=== PATIENT | male | born 1970 | race Caucasian/White ===

== ENCOUNTER 2018-01-26 08:19 | Inpatient (IN) | payer OTHER ==
[~2018-01-26] VITALS: Ht 180.3 cm; Wt 120.2 kg
[~2018-01-26 08:19] MED LIST: ALVIMOPAN 12 MG CAPSULE PO ONE; CEFOXITIN 2 GM/DEXTROSE,ISO 50 ML (PREMIX) IV ONE; LIP20 PO; LISI-209 PO; LOP600 PO
[2018-01-26] MEDS ORDERED: ALVIMOPAN 12 MG CAPSULE PO ONE (08:46)
[2018-01-26] MEDS ORDERED: cefOXitin 1 GM IVPB PREMIX 100 ML IV ONE (08:48)
[2018-01-26] MEDS ORDERED: GABA-531 PO (09:00)
[2018-01-26] MEDS ORDERED: EMPA1TAB7 PO (09:00)
[2018-01-26] MEDS ORDERED: ASPI81TA2 PO (09:00)
[2018-01-26] MEDS ORDERED: NS IRRIG SOLN 1000 ML IR ONE (10:35)
[2018-01-26] MEDS ORDERED: SUCCINYLCHOLINE CHLORIDE 20 MG/ML(QUELICIN) IVP ONE (10:35)
[2018-01-26] MEDS ORDERED: fentaNYL CITRATE 250 MCG/5 ML AMP IV ONE (10:35)
[2018-01-26] MEDS ORDERED: ONDANSETRON HCL 4 MG/2 ML VIAL IVP ONE (10:35)
[2018-01-26] MEDS ORDERED: GLYCOPYRROLATE 0.2 MG/ML VIAL IJ ONE (10:35)
[2018-01-26] MEDS ORDERED: PROPOFOL 200MG/ 20ML VIAL (DIPRIVAN) IV ONE (10:35)
[2018-01-26] MEDS ORDERED: LR 1,000 ML IV.SOLN IV ONE (10:35)
[2018-01-26] MEDS ORDERED: MIDAZOLAM HCL 5 MG/5 ML VIAL IVP ONE (10:35)
[2018-01-26] MEDS ORDERED: BUPIVACAINE LIPOSOME/PF 266 MG/20 ML VIAL INFIL ONE ×2 (10:35→12:57)
[2018-01-26] MEDS ORDERED: ROCURONIUM BROMIDE 10 MG/ML (ZEMURON) IV ONE (10:35)
[2018-01-26] MEDS ORDERED: SEVOFLURANE 15 MIN GAS INH ONE (10:35)
[2018-01-26] MEDS ORDERED: LR 1,000 ML IV SCH (12:38)
[2018-01-26] MEDS ORDERED: MORPHINE 4 MG/ML INJ. SYRINGE IVP PRN ×3 (12:45)
[2018-01-26] MEDS ORDERED: METOCLOPRAMIDE HCL 10 MG/2 ML VIAL IVP PRN (12:45)
[2018-01-26] MEDS ORDERED: HYDROcodone/ACETAMIN 5-325 MG TAB (NORCO/ VICODIN) PO PRN (13:30)
[2018-01-26] MEDS ORDERED: HYDROmorphone 1 MG INJ. 1 MG/ML AMPUL IVP PRN (13:30)
[2018-01-26] MEDS ORDERED: ACETAMINOPHEN 325 MG TABLET PO PRN (13:30)
[2018-01-26] MEDS ORDERED: ONDANSETRON HCL 4 MG/2 ML VIAL IVP PRN (13:30)
[2018-01-26] MEDS ORDERED: METOCLOPRAMIDE HCL 10 MG/2 ML VIAL ONE (14:07)
[2018-01-26] MEDS ORDERED: MORPHINE 4 MG/ML INJ. SYRINGE ONE (14:15)
[2018-01-26] MEDS: D5/0.45 NS 1,000 ML IV SCH (14:50)
[2018-01-26] MEDS: HYDROcodone/ACETAMIN 5-325 MG TAB (NORCO/ VICODIN) PO PRN ×3 (14:50→23:18)
[2018-01-26 15:00] VITALS: BP_SYST 148
[2018-01-26 16:00] VITALS: BP_SYST 155
[2018-01-26 16:40] LABS: HEMATOCRIT 46.5 % (36-54); HEMOGLOBIN 15.7 g/dL (14.0-18.0)
[2018-01-26 17:06] LABS: CALCIUM 8.8 mg/dL (8.4-11.0); CREATININE 1.16 mg/dL (0.55-1.30); POTASSIUM 4.7 mmol/L (3.5-5.1)
[2018-01-26 18:04] VITALS: BP_SYST 148
[2018-01-26] MEDS: cefOXitin SODIUM 2 GM in D5W 100 ML IV SCH (20:48)
[2018-01-26] MEDS: FAMOTIDINE PF 20 MG/2 ML VIAL IVP SCH (20:49)
[2018-01-26] MEDS: ALVIMOPAN 12 MG CAPSULE PO SCH (20:49)
[2018-01-27] VITALS: BP_SYST 139
[2018-01-27] MEDS: D5/0.45 NS 1,000 ML IV SCH ×3 (03:30→12:15)
[2018-01-27] MEDS: HYDROcodone/ACETAMIN 5-325 MG TAB (NORCO/ VICODIN) PO PRN ×5 (03:43→20:37)
[2018-01-27 06:33] LABS: BASOPHILS % (AUTO) 0.4 % (0.0-2.0); EOSINOPHILS # (AUTO) 0.1 K/uL (0.0-0.4); EOSINOPHILS % (AUTO) 0.9 % (0.0-4.0); HEMATOCRIT 43.2 % (36-54); HEMOGLOBIN 14.9 g/dL (14.0-18.0); LYMPHOCYTES # (AUTO) 1.8 K/uL (1.0-5.5); LYMPHOCYTES % (AUTO) 22.1 % (20.5-51.5); MEAN CORPUSCULAR HEMOGLOBIN 30 pg (27-31); MEAN CORPUSCULAR HGB CONC 35 % (32-36); MEAN CORPUSCULAR VOLUME 87 fL (79.0-98.0); MONOCYTES # (AUTO) 0.7 K/uL (0.0-1.0); MONOCYTES % (AUTO) 8.4 % (1.7-9.3); NEUTROPHILS # (AUTO) 5.7 K/uL (1.8-7.7); NEUTROPHILS % (AUTO) 68.2 % (40.0-70.0); PLATELET COUNT (AUTO) 227 K/uL (130-430); RED BLOOD CELL COUNT(AUTO) 4.97 MIL/uL (4.2-6.2); RED CELL DISTRIBUTION WIDTH 12.2 % (9.0-15.0); WHITE BLOOD COUNT (AUTO) 8.3 K/uL (4.8-10.8)
[2018-01-27 07:04] LABS: ALBUMIN 3.5 g/dL (3.4-4.8); CALCIUM 8.1 mg/dL (8.4-11.0); CREATININE 0.98 mg/dL (0.55-1.30); POTASSIUM 3.6 mmol/L (3.5-5.1)
[2018-01-27 08:00] VITALS: BP_SYST 145
[2018-01-27] MEDS: ALVIMOPAN 12 MG CAPSULE PO SCH ×2 (08:20→20:36)
[2018-01-27] MEDS: ENOXAPARIN SODIUM 30 MG/0.3 ML SYRINGE SUBCUT SCH (08:21)
[2018-01-27] MEDS: cefOXitin SODIUM 2 GM in D5W 100 ML IV SCH (08:21)
[2018-01-27] MEDS: FAMOTIDINE PF 20 MG/2 ML VIAL IVP SCH ×2 (08:22→20:36)
[2018-01-27] MEDS ORDERED: DEXTROSE 50% JECT 50 ML DISP.SYRIN IVP PRN (10:45)
[2018-01-27 12:00] VITALS: BP_SYST 137
[2018-01-27] MEDS: GABAPENTIN 300 MG CAPSULE PO SCH ×2 (16:00→20:36)
[2018-01-27 16:53] VITALS: BP_SYST 132
[2018-01-27] MEDS: METOCLOPRAMIDE HCL 10 MG/2 ML VIAL IVP SCH (17:41)
[2018-01-28] MEDS: HYDROcodone/ACETAMIN 5-325 MG TAB (NORCO/ VICODIN) PO PRN ×3 (00:22→13:59)
[2018-01-28] MEDS: INSULIN REGULAR, HUMAN 100 UNITS/ML, 10 ML VIAL (novoLIN R) SUBCUT PRN ×2 (00:25→05:39)
[2018-01-28 00:56] VITALS: BP_SYST 140
[2018-01-28] MEDS: METOCLOPRAMIDE HCL 10 MG/2 ML VIAL IVP SCH ×3 (05:44→11:56)
[2018-01-28 08:00] VITALS: BP_SYST 138
[2018-01-28] MEDS: GABAPENTIN 300 MG CAPSULE PO SCH ×2 (08:34→14:40)
[2018-01-28] MEDS: FAMOTIDINE PF 20 MG/2 ML VIAL IVP SCH (08:35)
[2018-01-28] MEDS: ENOXAPARIN SODIUM 30 MG/0.3 ML SYRINGE SUBCUT SCH (08:35)
[2018-01-28] MEDS: ALVIMOPAN 12 MG CAPSULE PO SCH (08:36)
[2018-01-28] MEDS ORDERED: LISINOPRIL 5 MG TABLET PO SCH (09:00)
[2018-01-28] MEDS ORDERED: ATORVASTATIN 20 MG TABLET PO SCH (09:00)
[2018-01-28] MEDS ORDERED: GEMFIBROZIL 600 MG TABLET (LOPID) PO SCH (09:00)
[2018-01-28] MEDS: D5/0.45 NS 1,000 ML IV SCH (10:01)
[2018-01-28 12:00] VITALS: BP_SYST 135
[2018-01-28 12:40] VITALS: BP_SYST 149
== END 2018-01-28 15:00 | disposition home or self-care (01) | DRG 392 ==
LOC: SMU 08:19 → EDSTATUS 08:40 → SMU 12:49
PROVIDERS: ADMIT Colon & Rectal Surgery; ATTEND Colon & Rectal Surgery
PROC: 0DBP8ZZ Excision of Rectum, Via Natural or Artificial Opening Endoscopic (ICD-10-PCS; principal; 2018-01-26 10:30)
DX: K57.32 Diverticulitis of large intestine without perforation or abscess without bleeding (principal); E11.9 Type 2 diabetes mellitus without complications; I10 Essential (primary) hypertension
CPT/HCPCS: 36415; 80048; 80053; 82962; 85018-TC; 85025; 87081; 88307; 97535-GP; C9290; J0330; J0694; J1650; J1815; J2250; J2270; J2405; J2704; J2765; J3010; J3490; J7060; J7120

== ENCOUNTER 2021-01-28 15:43 | Emergency (ER) | payer OTHER ==
[~2021-01-28] VITALS: Ht 180.3 cm; Wt 113.4 kg
[~2021-01-28 15:43] MED LIST changes: -ALVIMOPAN 12 MG CAPSULE PO ONE; +ASPI-1155 PO; -CEFOXITIN 2 GM/DEXTROSE,ISO 50 ML (PREMIX) IV ONE; +EMPA1TAB7 PO; +GABA-531 PO
[2021-01-28 15:55] VITALS: BP_SYST 129
--- NOTE | 2021-01-28 16:00 | NUR ---
AMBULATED TO BED 4
--- NOTE | 2021-01-28 16:15 | NUR ---
Pt came to ER LLQ abd pain describes as burning, hx of colon resection and colon CA in family. Pt was seen in clinic but was referred to ER for CT scan due to complicated diverticulitis. Pt currently resting in [facility] at this time, VSS, no distress.
--- NOTE | 2021-01-28 16:15 | NUR ---
ER at bedside examining patient.
[2021-01-28 17:03] LABS: BASOPHILS # (AUTO) 0.1 K/uL (0.0-0.2); BASOPHILS % (AUTO) 0.9 % (0.0-2.0); EOSINOPHILS # (AUTO) 0.2 K/uL (0.0-0.4); EOSINOPHILS % (AUTO) 2.8 % (0.0-4.0); HEMOGLOBIN 14.7 g/dL (14.0-18.0); LYMPHOCYTES # (AUTO) 2.1 K/uL (1.0-5.5); MEAN CORPUSCULAR HEMOGLOBIN 30 pg (27-31); MEAN CORPUSCULAR HGB CONC 35 % (32-36); MEAN CORPUSCULAR VOLUME 86 fL (79.0-98.0); MONOCYTES # (AUTO) 0.5 K/uL (0.0-1.0); NEUTROPHILS # (AUTO) 2.9 K/uL (1.8-7.7); NEUTROPHILS % (AUTO) 51.3 % (40.0-70.0); PLATELET COUNT (AUTO) 226 K/uL (130-430); RED BLOOD CELL COUNT(AUTO) 4.91 MIL/uL (4.2-6.2); RED CELL DISTRIBUTION WIDTH 13.1 % (9.0-15.0); WHITE BLOOD COUNT (AUTO) 5.7 K/uL (4.8-10.8)
[2021-01-28 17:09] LABS: BILIRUBIN,URINE NEGATIVE (NEGATIVE); BLOOD, URINE NEGATIVE (NEGATIVE); CLARITY/URINE CLEAR (CLEAR); COLOR,URINE YELLOW (YELLOW); GLUCOSE,URINE 3+ (NEGATIVE); KETONES,URINE NEGATIVE (NEGATIVE); LEUKOCYTE ESTERASE ,URINE NEGATIVE (NEGATIVE); NITRITE, URINE NEGATIVE (NEGATIVE); PH,URINE 5.5 (5.0-8.0); PROTEIN URINE NEGATIVE (NEGATIVE); UROBILINOGEN,URINE 0.2 (0.2-1.0)
[2021-01-28 17:52] LABS: CALCIUM 8.5 mg/dL (8.4-11.0); CREATININE 1.44 mg/dL (0.55-1.30); POTASSIUM 4.4 mmol/L (3.5-5.1)
[2021-01-28 17:54] LABS: BACTERIA,URINE RARE /HPF (None Seen); RBC,URINE NONE SEEN /HPF (0-3); WBC,URINE NONE SEEN /HPF (0-3)
[2021-01-28 17:58] LABS: ALBUMIN 4.3 g/dL (3.4-4.8); BILIRUBIN,DIRECT 0.1 mg/dL (0.0-0.3); TOTAL BILIRUBIN 0.4 mg/dL (0.0-1.0)
[2021-01-28] MEDS ORDERED: METR500T PO (17:58)
[2021-01-28] MEDS ORDERED: CIPR500T5 PO (17:59)
--- NOTE | 2021-01-28 19:10 | NUR ---
Recieved endorsement from night night monitor, AAOX4, breathing spontaneously at room air, not in distress noted, awaiting for re-assessment.
--- NOTE | 2021-01-28 19:21 | NUR ---
Patient given written and verbal discharge instructions and verbalizes understanding. ER MD discussed with patient the results and treatment provided. Patient in stable condition. ID arm band removed. Rx of given. Patient educated on pain management and to follow up with PMD. Pain Scale 2/10. Opportunity for questions provided and answered. Medication side effect fact sheet provided.
[2021-01-28 19:30] VITALS: BP_SYST 125
== END 2021-01-28 19:21 | disposition home or self-care (01) ==
LOC: SED 15:43
DX: K57.92 Diverticulitis of intestine, part unspecified, without perforation or abscess without bleeding (principal); R10.32 Left lower quadrant pain; Z85.9 Personal history of malignant neoplasm, unspecified; Z79.899 Other long term (current) drug therapy; Z79.82 Long term (current) use of aspirin
CPT/HCPCS: 36415; 76376; 80048; 80076; 81000-TC; 83690-TC; 85025; 99284